=== PATIENT | male | born 1925 | race Caucasian/White ===

== ENCOUNTER → 2016-06-12 | Outpatient (CLI) | payer MEDICARE, OTHER ==
[~2016-06-12] MED LIST: ACET325T51 PO; BISA10SU8 RECTALLY; CALC750T4 PO; CARB-47 PO; CHOL20002 PO; DOCU-175 PO; DOCU240C25 PO; ENOX40DI SQ; FAMO20TA8 PO; FLUT16SP EA NOSTRIL; FLUT16SP12 NS; HYDR-3989 PO; MAGN400O4 PO; METO25TA6 PO; METO50TA5 PO; ONDA4TAB10 PO; SERT50TA12 PO; TROL85CR8 TOP
[2016-06-12 06:26] LABS: BLOOD, URINE NEGATIVE (NEGATIVE); COLOR,URINE YELLOW (YELLOW); LEUKOCYTE ESTERASE ,URINE NEGATIVE (NEGATIVE); NITRITE,URINE NEGATIVE (NEGATIVE); UROBILINOGEN,URINE 0.2 EU/DL (NORMAL)
== END ==
LOC: LABN.BH 06:14 → LABNH.BH 06:14
DX: N39.0 Urinary tract infection, site not specified (principal)
CPT/HCPCS: 81003

== ENCOUNTER 2016-06-26 14:19 | Inpatient (IN) | payer MEDICARE, OTHER ==
[~2016-06-26] VITALS: Ht 175.3 cm; Wt 68.1 kg
--- OUTSIDE RECORDS SUMMARY | 2016-06-26 14:29 | XMS REPORT | Continuity of Care Document ---
Author Author [facility] Organization [facility] Address Unknown Phone Unavailable Support Name Relationship Address Phone WOOD HAGEN DO Caregiver [facility] [address] [place] [address] YESICA ARMIJO MD Caregiver [address] [place] [address] MARIA ALEJANDRA SMALLS MD Caregiver [address] [place] [phone] RIVKA FELIZ (DPOA) Next Of Kin [address] [place], [place] [id number] Insurance Providers Payer Name Policy Number Subscriber Name Relationship Medicare [id number] Jefferson Esteban 18 Self [place] [id number] Jefferson Esteban 18 Self Advance Directives Directive Response Recorded Date/Time Advanced Directives Type DPOA for Healthcare 09/18/13 12:51pm Ordered Resuscitation Status Do Not Resuscitate 09/18/13 7:06pm Resuscitation Documents on File No 09/18/13 12:51pm Chief Complaint and Reason for Visit Chief Complaint DIAG NAUSEA/VOMITING Reason for Visit Nausea & vomiting Nausea & vomiting CAD (coronary artery disease) S/P placement of cardiac pacemaker Elevated CPK Hypertension Leukocytosis GERD (gastroesophageal reflux disease) CKD (chronic kidney disease), stage III History of prostate cancer Debility Problems Medical Problems Problem Onset Date Status TIA VS SYNCOPE Unknown Active Nausea & vomiting Unknown Resolved Nausea & vomiting Unknown Active CAD (coronary artery disease) Unknown Active Elevated CPK Unknown Active Hypertension Unknown Active Leukocytosis Unknown Resolved GERD (gastroesophageal reflux disease) Unknown Active CKD (chronic kidney disease), stage III Unknown Active History of prostate cancer Unknown Resolved Debility Unknown Active Surgical Problems Problem Onset Date Recorded Date/Time Status S/P placement of cardiac pacemaker Unknown 09/20/2013 8:31am Active Medications Medication Dose Route Sig Days/Qty Instructions Order Date Discontinued Date Status Aspirin 81 Mg PO DAILY 08/25/10 Active Famotidine 10 Mg PO DAILY 08/25/10 10/22/11 Discontinued Ascorbic Acid 500 Mg PO DAILY 07/29/11 Active [vitamin d3] 2,000 Unit DAILY 07/29/11 04/18/13 Discontinued [Donepezil] 02/12/13 04/18/13 Discontinued [Fish Oil] 02/12/13 04/18/13 Discontinued [Pantoprazole] 02/12/13 04/18/13 Discontinued Cephalexin Monohydrate 500 Mg PO THREE TIMES A DAY 02/12/13 Discontinued Donepezil Hcl 5 Mg PO BEDTIME 04/18/13 Active Pantoprazole Sodium 40 Mg PO DAILY 04/18/13 Active Carbidopa/Levodopa 1 Tab.sa PO TWICE A DAY 04/18/13 Active Fish Oil/[place]-3 Fatty Acids 1 Cap PO DAILY 09/18/13 Active Fluticasone Propionate 16 Gm NS 09/18/13 Active Multivit, Iron, Min #3, Fa 1 Tab PO 09/18/13 Active Cholecalciferol (Vitamin D3) 2,000 Unit PO DAILY 09/18/13 Active Cetirizine Hcl 10 Mg PO DAILY 09/18/13 Active Metoclopramide Hcl 5 Mg PO BEFORE MEALS 09/18/13 09/21/13 Discontinued Metoprolol Tartrate 75 Mg PO TWICE DAILY WITH MEALS 30 Days 09/21/13 Active Metoclopramide Hcl 5 Mg PO 30 MIN BEFORE MEALS & BEDTIME PRN NAUSEA 30 Qty 09/21/13 Active Social History Social History Problem Response Recorded Date/Time Smoking Status Unknown if ever smoked 09/18/2013 12:54pm Chewing Tobacco Status No 09/18/2013 10:13am Hx Substance Use No 09/18/2013 10:13am Hx Alcohol Use No 09/18/2013 10:13am Has the pt used tobacco in the last 12 months No 09/18/2013 12:54pm Query Response Start Date Stop Date Smoking Status Never smoker Hospital Discharge Instructions Instructions: Care Instructions: Reason for Hospitalization: Intractable N/V I was in the hospital because (patient own words): BECAUSE I WAS SICK Discharge Diet: No added salt Discharge Activity: As tolerated Follow Up Appointments: [facility] FridaySEPTEMBER 29 4:15 Condition at time of discharge: Good Care Plan Discharge Patient: Goal: Maximum functional status Patient Instructions: see patient instructions Problem: see problem list Patient Instructions: see patient instructions Problem: see problem list Plan of Care Discharge Date 09/21/13 5:00pm Disposition 03 TO [facility] NOT [facility] (SNF) Instructions/Education Provided High Blood Pressure (Hypertension) ( Alternative Therapy) Coronary Artery Disease DI for Gastroesophageal Reflux Disease (GERD) DI for Parkinson's Disease Prescriptions See Medications Section Functional Status Query Response Date Recorded Physical Hygiene Assist September 21, 2013 5:00pm Disabilities Hearing Visual September 21, 2013 5:00pm Devices Used Glasses September 21, 2013 5:00pm Dressing Assist September 21, 2013 5:00pm Ambulation Assist September 21, 2013 5:00pm Diet Self September 21, 2013 5:00pm Mental Status Alert Confused September 21, 2013 5:00pm Disabilities Hearing Visual September 21, 2013 5:00pm Devices Used Glasses September 21, 2013 5:00pm Physical Hygiene Assist September 21, 2013 5:00pm Dressing Assist September 21, 2013 5:00pm Ambulation Assist September 21, 2013 5:00pm Diet Self September 21, 2013 5:00pm Allergies, Adverse Reactions, Alerts Allergen Type Severity Reaction Status Last Updated No Known Allergies Active 09/18/13 Immunizations Name Given Type Hx Influenza Vaccination Y "a coule of months ago" (2012) Historical Hx Pneumococcal Vaccination No Historical Hx Influenza Vaccination Y "a coule of months ago" (2012) Historical Vital Signs Acute Vital Signs Vital Response Date/Time Temperature (Fahrenheit) 97.3 deg F (96.8 - 99.1) Temperature (Calculated Celsius) 36.76956 degrees C (36.0 - 37.3) Temperature Source Oral Pulse Rate (adult) 76 bpm (60 - 100) Respiratory Rate 17 breaths/min (10 - 20) O2 Sat by Pulse Oximetry 95 % (90 - 100) Blood Pressure 144/74 mm Hg Blood Pressure Source Automatic Cuff Height 5 ft 7 in Weight 161 lb Body Mass Index 25.0 kg/m^2 Results Test Source Date Result Interp. Ref. Range Comments Activated Partial Thromboplast Time August 30, 2010 4:20am 24.5 SEC N 24- 36 Alanine Aminotransferase (ALT/SGPT) September 19, 2013 5:40am 26 U/L N 21-72 Albumin September 19, 2013 5:40am 3.5 G/DL N 3.5-5.0 Albumin/Globulin Ratio September 19, 2013 5:40am 1.2 RATIO N 1.1-2.2 Alkaline Phosphatase September 19, 2013 5:40am 58 U/L N 38-126 Amylase Level September 18, 2013 9:50am 92 U/L N 30-110 Anion Gap September 21, 2013 4:39am 5 MEQ/L N 5-15 Aspartate Amino Transf (AST/SGOT) September 19, 2013 5:40am 44 U/L N 17-59 B-Type Natriuretic Peptide August 25, 2010 7:33pm 95 PG/ML N 15-100 BUN/Creatinine Ratio September 21, 2013 4:39am 21 RATIO N 6-26 Band Neutrophils # September 18, 2013 9:50am 0.5 T/MM3 - Band Neutrophils % September 18, 2013 9:50am 3.0 % N 0-6 Basophils # (Auto) September 21, 2013 4:39am 0.0 T/MM3 N 0-0.2 Basophils (%) (Auto) September 21, 2013 4:39am 0.5 % N 0-2 Blood Urea Nitrogen September 21, 2013 4:39am 23.0 MG/DL H 9-20 Calcium Level September 21, 2013 4:39am 8.0 MG/DL L 8.4-10.2 Calculated Osmolality September 21, 2013 4:39am 271 MOSM/KG N 261-280 Carbon Dioxide Level September 21, 2013 4:39am 25 MEQ/L N 22-30 Chloride Level September 21, 2013 4:39am 109 MEQ/L H 98-107 Cholesterol Level September 19, 2013 5:40am 169 MG/DL N 132-199 COMMENT TO BLOOD IN LABCOMMENT ADD TROPONIN TO BLOOD DRAWN THIS AM Cholesterol/HDL Ratio September 19, 2013 5:40am 3.7 RATIO N 0-5.0 COMMENT TO BLOOD IN LABCOMMENT ADD TROPONIN TO BLOOD DRAWN THIS AM Conjugated Bilirubin September 19, 2013 5:40am 0.00 MG/DL N 0.00-0.30 Creatine Kinase MB September 20, 2013 5:30am 4.8 NG/ML H 0-3.4 Creatinine September 21, 2013 4:39am 1.1 MG/DL DN 0.8-1.5 D-Dimer August 25, 2010 7:33pm 640 NG/ML H 0-230 <224 NG/ML=PRESUMPTIVE NEGATIVE FOR PE OR DVT>224 NG/ML=ADDITIONAL EVALUATION FOR PE OR DVT RECOMMENDED Eosinophils # (Auto) September 21, 2013 4:39am 0.3 T/MM3 N 0-0.5 Eosinophils (%) (Auto) September 21, 2013 4:39am 4.5 % H 0-4 Globulin September 19, 2013 5:40am 2.9 G/DL N 2.4-3.6 Glucose Level September 21, 2013 4:39am 83 MG/DL N 75-110 Hematocrit September 21, 2013 4:39am 37.8 % L 41-53 Hemoglobin September 21, 2013 4:39am 12.6 GM/DL L 13.5-17.5 LDL Cholesterol, Calculated September 19, 2013 5:40am 107.6 N 66-159 COMMENT TO BLOOD IN LABCOMMENT ADD TROPONIN TO BLOOD DRAWN THIS AM Lipase September 18, 2013 9:50am 73 U/L N 23-300 Lymphocytes # (Auto) September 21, 2013 4:39am 1.3 T/MM3 N 1-4.8 Lymphocytes # (Manual) September 18, 2013 9:50am 0.8 T/MM3 L 1-4.8 Lymphocytes % (Manual) September 18, 2013 9:50am 5.0 % L 23-45 Lymphocytes (%) (Auto) September 21, 2013 4:39am 21.7 % L 23-45 Magnesium Level August 30, 2010 4:20am 2.1 MG/DL DN 1.6-2.3 Mean Corpuscular Hemoglobin September 21, 2013 4:39am 32.0 UUG N 26-34 Mean Corpuscular Hemoglobin Concent September 21, 2013 4:39am 33.3 GM/DL N 31 -37 Mean Corpuscular Volume September 21, 2013 4:39am 95.9 UM3 N 80-100 Mean Platelet Volume September 21, 2013 4:39am 10.6 UM3 N 9.4-12.4 Metamyelocytes # September 18, 2013 9:50am 0.2 T/MM3 - Metamyelocytes % September 18, 2013 9:50am 1.0 % H 0-0 Monocytes # (Auto) September 21, 2013 4:39am 0.7 T/MM3 N 0-0.8 Monocytes # (Manual) September 18, 2013 9:50am 0.2 T/MM3 N 0-0.8 Monocytes % (Manual) September 18, 2013 9:50am 1.0 % N 0-9.0 Monocytes (%) (Auto) September 21, 2013 4:39am 12.3 % H 0-9.0 Neutrophils # (Auto) September 21, 2013 4:39am 3.6 T/MM3 N 1.8-7.7 Neutrophils # (Manual) September 18, 2013 9:50am 14.5 T/MM3 H 1.8-7.7 Neutrophils % (Manual) September 18, 2013 9:50am 90.0 % H 33-66 Neutrophils (%) (Auto) September 21, 2013 4:39am 60.8 % N 33-66 Platelet Count September 21, 2013 4:39am 143 T/MM3 N 130-400 Platelet Function Assay October 23, 2011 8:50am 44 % - <20% inhibition: recommended pre-surgical level.>20% inhibition: indicates anti-platelet effect. NOTE: Test not reliable with NSAID use or low platelet counts. Not for use with inherited platelet disorders. Potassium Level September 21, 2013 4:39am 4.0 MEQ/L N 3.6-5 Prothromb Time International Ratio October 23, 2011 8:50am 1.03 N 0.86- 1.10 THERAPUTIC RANGE=2.00-3.00 FOR ANTI-THROMBOSIS THERAPUTIC RANGE=2.50- 3.50 FOR IMPLANTED VALVE RDW Standard Deviation September 21, 2013 4:39am 47.0 FL N 36.9-50.2 Red Blood Count September 21, 2013 4:39am 3.94 M/MM3 L 4.50-5.90 Sodium Level September 21, 2013 4:39am 139 MEQ/L N 134-144 Thyroid Stimulating Hormone (TSH) September 19, 2013 5:40am 0.79 MIU/L N 0.47 -4.68 Total Bilirubin September 19, 2013 5:40am 2.00 MG/DL H 0.20-1.30 Total Creatine Kinase September 20, 2013 5:30am 685 U/L H 55-170 Total Protein September 19, 2013 5:40am 6.4 G/DL N 6.3-8.2 Triglycerides Level September 19, 2013 5:40am 77 MG/DL N 40-160 COMMENT TO BLOOD IN LABCOMMENT ADD TROPONIN TO BLOOD DRAWN THIS AM Troponin I September 20, 2013 5:30am 0.016 ng/ml N 0-0.12 Unconjugated Bilirubin September 19, 2013 5:40am 1.80 MG/DL H 0.00-1.10 Urine Bacteria September 18, 2013 12:15pm 1+ H - Has specimen been collected /obtained? Y Urine Bilirubin September 18, 2013 12:15pm Negative - Has specimen been collected/obtained? Y Urine Blood September 18, 2013 12:15pm 1+ H - Has specimen been collected/ obtained? Y Urine Collection Type September 18, 2013 12:15pm Cleancatch-midstream - Has specimen been collected/obtained? Y Urine Color September 18, 2013 12:15pm Yellow - Has specimen been collected/obtained? Y Urine Glucose (UA) September 18, 2013 12:15pm Negative - Has specimen been collected/obtained? Y Urine Hyaline Casts September 18, 2013 12:15pm 1-3 /LPF - Has specimen been collected/obtained? Y Urine Ketones September 18, 2013 12:15pm 2+ H - Has specimen been collected/ obtained? Y Urine Leukocyte Esterase September 18, 2013 12:15pm Negative - Has specimen been collected/obtained? Y Urine Mucus September 18, 2013 12:15pm Present - Has specimen been collected/obtained? Y Urine Nitrite September 18, 2013 12:15pm Negative - Has specimen been collected/obtained? Y Urine Protein September 18, 2013 12:15pm Trace H - Has specimen been collected/obtained? Y Urine RBC September 18, 2013 12:15pm 0-1 /HPF - Has specimen been collected/obtained? Y Urine Specific Protection September 18, 2013 12:15pm >=1.030 H - Has specimen been collected/obtained? Y Urine Squamous Epithelial Cells September 18, 2013 12:15pm 10-20 - Has specimen been collected/obtained? Y Urine Turbidity September 18, 2013 12:15pm Clear - Has specimen been collected/obtained? Y Urine Urobilinogen September 18, 2013 12:15pm 0.2 EU/DL - Has specimen been collected/obtained? Y Urine WBC September 18, 2013 12:15pm 1-3 /HPF - Has specimen been collected/obtained? Y Urine pH September 18, 2013 12:15pm 5.5 - Has specimen been collected/ obtained? Y VLDL Cholesterol September 19, 2013 5:40am 15.4 MG/DL N 0-28 COMMENT TO BLOOD IN LABCOMMENT ADD TROPONIN TO BLOOD DRAWN THIS AM White Blood Count September 21, 2013 4:39am 6.0 T/MM3 N 4.5-11.0 Chemistry Specimen Hemolysis September 21, 2013 4:39am < 15 0-25 0-25: No Hemolysis.26-70: Slight Hemolysis - can falsely elevate K and Urine Protein. 71-285: Moderate Hemolysis - can falsely elevate K, Troponin I, CA 19-9, PTH, CSF GLucose, and Urine Protein, and can falsely decrease Phenytoin. 286-999: Gross Hemolysis - can falsely elevate K, Troponin I, CA 19-9, PTH, CSF Glucose, and Urine Protine, and can falsely decrease Phenytoin. Recommend specimen recollection. Activated Clotting Time August 28, 2010 10:00am 152 SEC H 84-139 HDL Cholesterol Direct September 19, 2013 5:40am 46 MG/DL N 40-60 COMMENT TO BLOOD IN LABCOMMENT ADD TROPONIN TO BLOOD DRAWN THIS AM Turbidity September 21, 2013 4:39am < 20 0-20 Glomerular Filtration Rate Calc September 21, 2013 4:39am 63 - Immature Granulocyte # (Auto) September 21, 2013 4:39am 0.01 T/MM3 N 0.00- 0.03 Immature Granulocyte % (Auto) September 21, 2013 4:39am 0.2 % N 0.0-0.5 Icterus Index September 21, 2013 4:39am < 2 0-7 LO-Tnh-E-Type Natriuretic Peptide April 18, 2013 10:38am 295 PG/ML H 0 -175 Rule in cut points: <50 years old=450; 50-75 years old=900; >75 years old=1800; When utilizing ProBNP rule-in cut points, adjustment for impaired renal function is typically not required. Helicobacter pylori Rapid Urease Gastric Biopsy September 09, 2007 7:46am Procedures No known history of procedures. Encounters Encounter Location Date/Time Discharged Inpatient [facility] 09/18/13 6:00pm Recent Diagnosis Nausea & vomiting Nausea & vomiting CAD (coronary artery disease) Elevated CPK Hypertension Leukocytosis GERD (gastroesophageal reflux disease) CKD (chronic kidney disease), stage III History of prostate cancer Debility
[2016-06-26] MEDS ORDERED: NS KCL 20 MEQ 1,000 ML IV SCH ×3 (14:45→23:30)
[2016-06-26] MEDS ORDERED: METOCLOPRAMIDE 10mg/2ml INJECTION IV PRN (15:00)
--- NOTE | 2016-06-26 15:00 | NUR ---
Admit Patient arrives here at [id number] per wheelchair. Patient is non verbal at this time. NO distress noted.
[2016-06-26 15:02] VITALS: Ht 175.3 cm; Wt 68.1 kg
[2016-06-26] MEDS: NS KCL 20 MEQ 1,000 ML IV SCH ×2 (15:30→19:42)
[2016-06-26 15:35] VITALS: BP 126/71; PULSE 72; RESP 18; TEMP 97.4; O2SAT 91
[2016-06-26 15:37] VITALS: PULSE 72
[2016-06-26 15:39] LABS: HCT - HEMATOCRIT 42.6 % (41-53); HGB - HEMOGLOBIN 13.2 GM/DL (13.5-17.5); MEAN CORPUSCULAR HGB 30.9 UUG (26-34); MEAN CORPUSCULAR VOLUME 99.8 UM3 (80-100); MEAN PLATELET VOLUME 12.3 UM3 (9.4-12.4); RED BLOOD COUNT 4.27 M/MM3 (4.50-5.90); WBC - WHITE BLOOD COUNT 9.7 T/MM3 (4.5-11.0)
[2016-06-26 15:50] LABS: ALBUMIN 3.6 G/DL (3.5-5.0); ALBUMIN/GLOBULIN RATIO 0.9 RATIO (1.1-2.2); ALKALINE PHOSPHATASE 72 U/L (38-126); ALT (SGPT) 25 U/L (21-72); ANION GAP 17 MEQ/L (5-15); AST (SGOT) 30 U/L (17-59); BUN/CREATININE RATIO 19 RATIO (6-26); CALCIUM 9.4 MG/DL (8.4-10.2); CHLORIDE 126 MEQ/L (98-107); CO2 - CARBON DIOXIDE 21 MEQ/L (22-30); CREATININE 4.1 MG/DL (0.8-1.5); GLOMERULAR FILTRATION RATE 14; GLUCOSE 112 MG/DL (75-110); MAGNESIUM 2.6 MG/DL (1.6-2.3); TOTAL PROTEIN 7.4 G/DL (6.3-8.2)
[2016-06-26 15:52] LABS: SODIUM 164 MEQ/L (134-144)
[2016-06-26 16:31] LABS: ANISOCYTOSIS 1+; BAND NEUTROPHILS # 1.3 T/MM3; LYMPHOCYTES # (MANUAL) 1.6 T/MM3 (1-4.8); METAMYELOCYTES # 0.2 T/MM3; MONOCYTES # (MANUAL) 0.6 T/MM3 (0-0.8); NEUTROPHILS #(MANUAL)-ABSOLUTE 6.1 T/MM3 (1.8-7.7); TOTAL CELLS COUNTED 100 %
--- NOTE | 2016-06-26 17:00 | NUR ---
Pond catheter Pond catheter in inserted. Patient tolerates well. Urine is sent to lab. Dark peg urine return.
[2016-06-26 17:28] LABS: BLOOD, URINE 2+ (NEGATIVE); COLOR,URINE YELLOW (YELLOW); LEUKOCYTE ESTERASE ,URINE NEGATIVE (NEGATIVE); NITRITE,URINE NEGATIVE (NEGATIVE); UROBILINOGEN,URINE 0.2 EU/DL (NORMAL)
[2016-06-26 17:35] LABS: SQUAMOUS EPITHELIAL CELL,UR 0-5
[2016-06-26 17:36] LABS: BACTERIA,URINE 1+ (NEGATIVE)
--- NOTE | 2016-06-26 17:56 | HPF ---
CHIEF COMPLAINT Patient is an 89-year-old man who was brought in by a staff member from [facility] at my request for followup. The patient was seen here by Mago Padilla APRN, yesterday. At that time that was concern the patient had been failing gradually with more drastic changes over the last couple of weeks. According to the nursing staff the patient had become less responsive to family. He is just not very enthusiastic about anything, just lethargic. Over the last few days the patient also has needed to be fed which is unusual for him. He is not eating well or drinking well. He had a temperature yesterday of 100.4. He was incontinent of urine at that time which is also unusual for him. He has not voided since yesterday. His oral intake of fluids has gone down. Yesterday it appeared that he had a UTI. He was given 1 g of Rocephin here in the office and sent home on cephalexin. The patient is back today after the nurse practitioner showed me the patient's lab report with a BUN of 50, creatinine 2.93, GFR 18. However, sodium was 160, chloride 116, potassium normal at 4.2. The patient was admitted to [facility] at my request to gently correct his electrolytes. The patient appears to be dehydrated on physical examination today. PAST SURGICAL HISTORY Bilateral cataract surgery. Inguinal hernia surgery - 1990, 1994. Total knee replacement - 2005. Heart catheterization, PTCA and stent placement - 08/28/2010. Pacemaker insertion - 2010. ORIF right hip after fall - June 2014. CURRENT MEDICAL PROBLEMS Hypertension. BPH. History of TIA - 1996. GERD/gastritis. Dyslipidemia. Prostate cancer - May 2008. Parkinson's disease. Chronic kidney disease. SOCIAL HISTORY The patient resides at [facility]. He has been a since 2013. Five grown children. Retired from farming. Denies alcohol use and tobacco use. FAMILY HISTORY Father at age 86 from Parkinson's disease complications, type 2 diabetes mellitus complications. Mother at age 54 from motor vehicle accident. A sister with Parkinson' s disease. Brother at age 74 from coronary disease. Paternal grandfather from coronary disease. ALLERGIES No known drug allergies. CURRENT MEDICATIONS 1. Calcium carbonate twice daily. 2. Docusate calcium 240 mg one tablet daily p.r.n. 3. Ferrex 150 mg one tablet daily. 4. Bisacodyl suppository 10 mg one p.r.n. 5. Docusate sodium 100 mg b.i.d. 6. Zoloft 50 mg one tablet daily. 7. DuoNeb p.r.n. 8. Aspirin 325 mg one tablet daily. 9. Vitamin D3 2000 IU one tablet daily. 10. Tylenol 325 mg one to two tablets p.r.n. pain. 11. Metoprolol 50 mg one tablet twice daily. 12. Loratadine 10 mg one tablet daily. 13. Pantoprazole 40 mg one tablet daily. 14. Cephalexin 500 mg one tablet b.i.d. 15. Milk of Magnesia p.r.n. 16. Senna Plus p.r.n. 17. Docusate sodium liquid p.r.n. PHYSICAL EXAM VITAL SIGNS: Temperature 97.4. Pulse 72. Respirations 18. Blood pressure 127/ 71. Oxygen saturation 91% on room air. GENERAL: The patient is just basically quiet. He will not even respond to any questioning. He seems to be aware of his environment. HEENT: Lips are dry. Oral mucosa dry. NECK: Supple. CHEST: Lungs are clear. CARDIOVASCULAR: Regular rate and rhythm. ABDOMEN: Soft. EXTREMITIES: No cyanosis, clubbing or edema. NEUROLOGIC: Grossly intact. SKIN: Patient's skin is dry. ASSESSMENT 1. Acute dehydration due to hypovolemia. 2. Acute ksostvtt-eq-htyepb hypernatremia 3. Acute confusion with lethargy due to #1 above. 5. Anuria. 6. History of Parkinson's disease. 7. Acute renal injury due to acute illness. 8. Chronic kidney disease. PLAN Admit patient to [facility] under the care of Dr. Jamshid Valdivia. Patient will receive gentle IV fluid replacement for the hydration part as well as correcting the hypernatremia - not too aggressively. Patient will receive pain medication as needed. Lab needed includes CBC, CMP, UA, magnesium, urine osmolality - pending. The patient will be started on normal saline for a total of ten hours. Reglan 10 mg IV q.4-6h. p.r.n. MTDD
--- NOTE | 2016-06-26 18:43 | NUR ---
EOS Patient is resting in bed in no distress noted. Dr. Valdivia at bedside this evening visists with family. Family questions are answered.
[2016-06-26] MEDS ORDERED: IRON150C5 PO (20:12)
[2016-06-26] MEDS ORDERED: ASPI325T PO (20:19)
[2016-06-26 21:40] VITALS: PULSE 72; RESP 16; O2SAT 95
--- NOTE | 2016-06-26 22:00 | NUR ---
IV Fluids and new orders Addendum: 06/27/16 at 0512 by MILAN DE LOS SANTOS RN Received telephone order to discontinue NS with 20 kcl @250cc/hr. Change fluids to d5w with 20kcl @55cc/hr. Also received order for an ammonia level and head ct without contrast, and 500mg iv rocephin daily to be monitored by pharmacy. orders entered.
[2016-06-26] MEDS: POTASSIUM CHLORIDE 20 MEQ in D5W 1,000 ML IV SCH (22:27)
[2016-06-27 00:01] VITALS: BP 147/80; PULSE 67; RESP 18; TEMP 95.3; O2SAT 95
[2016-06-27] MEDS ORDERED: P-EP-93 PO (03:45)
[2016-06-27] MEDS ORDERED: OMEP20CA10 PO (03:45)
[2016-06-27] MEDS ORDERED: ASPI325T PO (03:47)
--- NOTE | 2016-06-27 05:12 | NUR ---
summary patient has remained nonverbal. He nods and shakes his head, but not always appropriate. christianson patent, draining. some bloody discharge noted, catheter care performed. no signs of distress. remains on room air. vss. will continue to monitor.
[2016-06-27 05:17] LABS: ANION GAP 16 MEQ/L (5-15); BUN/CREATININE RATIO 24 RATIO (6-26); CALCIUM 8.6 MG/DL (8.4-10.2); CHLORIDE 127 MEQ/L (98-107); CO2 - CARBON DIOXIDE 22 MEQ/L (22-30); CREATININE 3.2 MG/DL (0.8-1.5); GLOMERULAR FILTRATION RATE 18; GLUCOSE 102 MG/DL (75-110); POTASSIUM 4.3 MEQ/L (3.6-5)
[2016-06-27 05:29] LABS: SODIUM 165 MEQ/L (134-144)
[2016-06-27 08:00] VITALS: PULSE 67; RESP 18
--- NOTE | 2016-06-27 08:00 | NUR ---
Received report Patient is none verbal. No distress noted at this time. IVF running at 55ml/hr. RA VSS.
[2016-06-27 08:16] VITALS: BP 162/91; PULSE 72; RESP 18; TEMP 97; O2SAT 94
--- NOTE | 2016-06-27 08:30 | NUR ---
Nutrition risk r/t poor PO intake x 3 days while in hospital. Previous day admission. Diet: NPO r/t electrolyte imbalance, elevated BUN M/E: diet upgrade, electrolytes; intake RD will continue to monitor x 1406
--- NOTE | 2016-06-27 08:48 | DI ---
Indication: ITS.REASON: decreased loc, hypernatremia PROCEDURE: CT HEAD W/O CONTRAST: Encounter: Initial Comparison: August 28, 2014 Technique: Axial CT images through the head were performed without contrast. Iterative Reconstruction dose reducing technique was utilized. FINDINGS: Moderate to severe atrophy. Prominent retrocerebellar CSF space. The ventricles are dilated but unchanged. Old left cerebellar infarct. There is a new area of orellana-white differentiation loss in the left occipital lobe. There are extensive areas of low attenuation in the white matter which most likely represent changes from chronic microvascular ischemia. The brainstem, cerebellum, and cerebral hemispheres otherwise have a normal morphology and CT attenuation. There is no evidence of midline displacement. No hemorrhage, signs of acute territorial stroke, mass effect, mass lesions, or edema is evident. The visualized portions of the skull base, midface, and calvarium demonstrate no abnormality. Left maxillary sinus disease. The tympanic and mastoid cavities appear normal. IMPRESSION: No acute intracranial hemorrhage. New area of infarct in the left occipital lobe of uncertain age. .
[2016-06-27] MEDS ORDERED: CEFTRIAXONE IV SCH (09:00)
[2016-06-27] MEDS ORDERED: NORMAL SALINE IV SCH (09:00)
--- NOTE | 2016-06-27 10:27 | DI ---
Indication: ITS.REASON: hypernatremia PROCEDURE: CHEST 1 VIEW: Encounter: Initial Comparison: August 28, 2014 Findings: Motion artifact. There is some hazy airspace opacity in both lower lobes. No pneumothorax or definite effusion. Heart size and mediastinal contours are stable. Pulmonary vascularity appears normal. Impression: Lower lobe airspace disease could be due to atelectasis, pneumonia or aspiration. .
--- NOTE | 2016-06-27 11:05 | NUR ---
[facility] CM VISITED PT. CM PROVIDED CONTACT INFORMATION AT BEDSIDE AND ON BOARD. CM SPOKE WITH PT DAUGHTER RIVKA. CM EXPLAINED ROLE AND PROVIDED CONTACT INFORMATION. PT WILL RETURN TO [facility] AT TIME OF [place] [facility] [place] CM LEFT MESSAGE FOR DORITA AT [facility] REGARDING PT STATUS AND PROVIDED CONTACT INFORMATION.
[2016-06-27] MEDS: CEFTRIAXONE 1 G in NORMAL SALINE 100 ML IV SCH (13:02)
--- NOTE | 2016-06-27 13:23 | NUR ---
CEFTRIAXONE CONSULT 89 y/o M with ARF 2/2 UTI and hypernatremia. Current antibiotic for UTI is ceftriaxone. Pharmacy consulted for ceftriaxone. In spite of increased SCr, ceftriaxone is not renally cleared and does not need to be adjusted due to ARF. Increased dose to 1 g IV q24h.
--- NOTE | 2016-06-27 14:47 | PNF ---
DATE 06/27/2016 SUBJECTIVE Patient is lying in bed in Room 135 on the medical floor. The patient does not respond. He moves his hands around but he is not agitated. He does not open his eyes or talk back to the examiner. PHYSICAL EXAMINATION GENERAL: He looks comfortable but is not talking at all. HEENT: Funduscopic examination unremarkable. NECK: Supple. LUNGS: Clear. CARDIOVASCULAR: Regular rate and rhythm. ABDOMEN: Soft. EXTREMITIES: No significant edema. Lab this morning: Sodium is 165 - one tick up. Potassium 4.3. Creatinine down from 4.1 to 3.2. Calculated osmolality is 339. Specimen is hemolyzed. Ammonia is less than 9. Liver function tests normal. Chest x-ray shows possible pneumonia. CT head done yesterday: No acute intracranial hemorrhage. A new area of infarct in the left occipital lobe of uncertain age as read by the radiologist. ASSESSMENT 1. Moderate to severe hypernatremia. 2. Acute dehydration. 3. Recent urinary tract infection. 4. Possible left lower lobe pneumonia. That would be community acquired. 5. Lethargy. 6. Hypovolemic hypernatremia. 7. Anuria, improving. 8. History of Parkinson's disease. 9. Acute renal injury due to acute illness. Creatinine is improving. 10. Chronic kidney disease, stage 4-5. PLAN Will continue patient on D5W today and check another sodium this noon. Result is pending. Will make decision based on that. Continue hydration. Continue with IV antibiotics. MTDD
[2016-06-27 16:00] VITALS: BP 155/83; PULSE 66; RESP 16; TEMP 97.1
[2016-06-27] MEDS: POTASSIUM CHLORIDE 20 MEQ in D5W 1,000 ML IV SCH (17:11)
--- NOTE | 2016-06-27 18:28 | NUR ---
EOS Patient rests in bed in no distress. Continues D5W+20kcl at 55ml/hr. No new concerns noted this shift
[2016-06-28 00:32] VITALS: BP 141/70; PULSE 66; RESP 18; TEMP 97.3; O2SAT 97
[2016-06-28 05:13] LABS: ANION GAP 13 MEQ/L (5-15); BUN/CREATININE RATIO 26 RATIO (6-26); CHLORIDE 123 MEQ/L (98-107); CO2 - CARBON DIOXIDE 23 MEQ/L (22-30); CREATININE 2.4 MG/DL (0.8-1.5); GLOMERULAR FILTRATION RATE 26; GLUCOSE 101 MG/DL (75-110); POTASSIUM 4.2 MEQ/L (3.6-5); SODIUM 159 MEQ/L (134-144)
--- NOTE | 2016-06-28 06:25 | NUR ---
SUMMARY PT IS NON VERBAL. NO GRIMACING OR MOANING NOTED THIS SHIFT. PT OPENS EYES TO VOICE. HAS BEEN REPOSITIONED SEVERAL TIMES THIS SHIFT. CONTINUES ON IV FLUIDS THAT HE TOLERATES WELL. MAHER INTACT. ADEQUATE URINE OUTPUT. PT IS NPO. NO PRN MEDICATION GIVEN THIS SHIFT. FAMILY VISITED THE PT AT THE BEGINNING OF THE SHIFT.
[2016-06-28 07:43] VITALS: BP 150/69; PULSE 66; RESP 18; TEMP 97.3; O2SAT 97
[2016-06-28 08:00] VITALS: RESP 18
[2016-06-28] MEDS: POTASSIUM CHLORIDE 20 MEQ in D5W 1,000 ML IV SCH (12:01)
[2016-06-28] MEDS: CEFTRIAXONE 1 G in NORMAL SALINE 100 ML IV SCH (12:03)
[2016-06-28 15:34] VITALS: BP 167/67; PULSE 67; RESP 18; O2SAT 97
--- NOTE | 2016-06-28 17:54 | NUR ---
shift status Awake does follow commands squeezes hands does say a few words, took pudding and thickened water. does cough after food. vs stable foely patent. family here and dr Valdivia here,
--- NOTE | 2016-06-28 18:10 | PNF ---
DATE 06/28/2016 SUBJECTIVE The patient is lying on bed in room 135 medical floor. The patient is not really very conversant. He will just pull his cover around him, but he will not talk. OBJECTIVE VITAL SIGNS: Blood pressure early this morning was 150/69 with a pulse of 60. Temperature 97.3. O2 saturation 97% on room air. GENERAL: He looks comfortable overall, not talkative. HEENT: Funduscopic examination is unremarkable. Pupils equal, round, reactive to light bilaterally. NECK: Supple. LUNGS: Clear. CARDIOVASCULAR: Regular rate and rhythm. ABDOMEN: Soft. EXTREMITIES: No edema. LABORATORY DATA Chemistry today: Sodium 159, potassium 4.2, chloride 123, CO2 23, BUN 63, creatinine 2.4. Calculated osmolality 323. Urine osmolality is 634. ASSESSMENT 1. [id number] hypernatremia. It actually is improving. 2. Acute dehydration. Patient is on replacement. 3. Urinary tract infection. Patient is on antibiotics. 4. Possible left lower lobe pneumonia. 5. Lethargy/somnolence. 6. Anuria improving. 7. Acute renal injury superimposed on chronic kidney disease, stage III to IV. Creatinine is improving. 8. History of Parkinson disease. PLAN Neurologic consultation today was initiated. We will continue with the same rate of IV fluids. Follow up electrolytes in the morning. RUDY
[2016-06-28] MEDS ORDERED: HYDROCODONE/APAP 5 mg/325 mg TABLET PO PRN (18:15)
[2016-06-28] MEDS ORDERED: ONDANSETRON ODT 4 MG TAB PO PRN (18:15)
[2016-06-28] MEDS ORDERED: DOCUSATE CALCIUM 240 MG CAPSULE PO PRN (18:15)
[2016-06-28] MEDS ORDERED: ACETAMINOPHEN 325 MG TABLET PO PRN (18:15)
[2016-06-28] MEDS ORDERED: MILK OF MAGNESIA 30 ML SUSP PO PRN (18:15)
[2016-06-28] MEDS ORDERED: TROLAMINE SALICYLATE 85 GM TUBE TOP PRN (18:15)
[2016-06-28] MEDS ORDERED: BISACODYL 10 MG SUPPOSITORY RECTALLY PRN (18:15)
[2016-06-28] MEDS: CARBIDOPA/LEVODOPA 25 MG/100 MG TABLET PO SCH (20:10)
[2016-06-28] MEDS: CALCIUM CARBONATE 750mg Chewable TAB PO SCH (20:10)
[2016-06-28 20:18] VITALS: PULSE 67; RESP 18
[2016-06-28] MEDS: FAMOTIDINE 20 MG TABLET PO SCH (21:29)
[2016-06-28] MEDS: DOCUSATE SODIUM 100 MG CAPSULE PO SCH (21:29)
[2016-06-28 23:50] VITALS: BP 141/71; PULSE 65; RESP 24; TEMP 97.4; O2SAT 97
[2016-06-29 05:35] LABS: BASOPHILS % (AUTO) 0.3 % (0-2); EOSINOPHILS # (AUTO) 0.3 T/MM3 (0-0.5); EOSINOPHILS % (AUTO) 4.8 % (0-4); HCT - HEMATOCRIT 37.7 % (41-53); HGB - HEMOGLOBIN 11.6 GM/DL (13.5-17.5); IMMATURE GRANULOCYTE # (AUTO) 0.05 T/MM3 (0.00-0.03); IMMATURE GRANULOCYTE % (AUTO) 0.8 % (0.0-0.5); LYMPHOCYTES # (AUTO) 1.4 T/MM3 (1-4.8); LYMPHOCYTES % (AUTO) 21.7 % (23-45); MEAN CORPUSCULAR HGB 30.8 UUG (26-34); MEAN CORPUSCULAR HGB CONC(MCHC 30.8 GM/DL (31-37); MEAN PLATELET VOLUME 12.1 UM3 (9.4-12.4); MONOCYTES # (AUTO) 0.5 T/MM3 (0-0.8); MONOCYTES % (AUTO) 8.4 % (0-9.0); RED BLOOD COUNT 3.77 M/MM3 (4.50-5.90); WBC - WHITE BLOOD COUNT 6.3 T/MM3 (4.5-11.0)
[2016-06-29 05:50] LABS: ANION GAP 11 MEQ/L (5-15); BUN/CREATININE RATIO 23 RATIO (6-26); CALCIUM 9.2 MG/DL (8.4-10.2); CHLORIDE 118 MEQ/L (98-107); CO2 - CARBON DIOXIDE 24 MEQ/L (22-30); GLOMERULAR FILTRATION RATE 32; GLUCOSE 100 MG/DL (75-110); POTASSIUM 4.4 MEQ/L (3.6-5); SODIUM 153 MEQ/L (134-144)
[2016-06-29] MEDS: CARBIDOPA/LEVODOPA 25 MG/100 MG TABLET PO SCH ×2 (06:17→19:28)
[2016-06-29] MEDS: OMEPRAZOLE 20 MG CAPSULE PO SCH (06:18)
--- NOTE | 2016-06-29 06:44 | NUR ---
SHIFT SUMMARY PT IS AWAKE AND MUTE PT DOES SMILE AND MAKE EYE CONTACT. PT DOES NOT ANSWER QUESTIONS MUTE. PT TAKES MEDS WITH PUDDING AND THICKENED LIQUIDS. PT COUGHS AFTER DRINKING OR PUDDING BUT CLEARS AIRWAY. PT HAS FLUIDS RUNNING PATENT IV IN RIGHT WRIST WRAPPED WITH CLING WRAP. PT OCCASIONALLY PICKS AT THINGS IS EASILY REDIRECTED. PT QUIET AND PLEASANT FOR THIS RN. FAMILY VISITED EARLY IN SHIFT AND STATED THAT PT APPEARED TO BE DOING WELL.
[2016-06-29] MEDS: POTASSIUM CHLORIDE 20 MEQ in D5W 1,000 ML IV SCH (06:52)
[2016-06-29 07:25] VITALS: BP 161/83; PULSE 68; RESP 20; TEMP 96; O2SAT 98
[2016-06-29 08:00] VITALS: PULSE 68; RESP 20
[2016-06-29] MEDS: DOCUSATE SODIUM 100 MG CAPSULE PO SCH ×2 (08:58→20:59)
[2016-06-29] MEDS: CALCIUM CARBONATE 750mg Chewable TAB PO SCH ×2 (08:58→20:59)
[2016-06-29] MEDS: ASPIRIN 325 MG TABLET PO SCH (08:58)
[2016-06-29] MEDS: IRON POLYSACCHARIDES COMPLEX 150 MG CAPSULE PO SCH (08:58)
[2016-06-29] MEDS: SERTRALINE 50 MG TABLET PO SCH (08:58)
[2016-06-29] MEDS ORDERED: POLYETHYL.GLYCOL 3350 PACKET 17gm PO SCH (10:30)
[2016-06-29] MEDS: CEFTRIAXONE 1 G in NORMAL SALINE 100 ML IV SCH (11:22)
[2016-06-29] MEDS: ENOXAPARIN 30 MG/0.3 ML INJECTION SQ SCH (11:22)
--- NOTE | 2016-06-29 13:42 | PNF ---
DATE 06/29/16 TIME 1030. Coverage for Dr. Valdivia. FOLLOWUP Hypernatremia, acute kidney injury. SUBJECTIVE The patient is resting in his bed comfortably this morning. He is awake and alert but not interacting verbally with me. It is difficult to obtain review of systems as he is nonverbal at this time. It does not look to this breathing problematic. His abdomen is not tender or uncomfortable. In discussion with nurse he did take 100% of his breakfast this morning and nursing reports he was actually able to feed himself. There is only one bowel movement charted but in discussion with nurse it sounds as if he had a fairly large stool the other day. Lab is showing improvement; sodium is gradually been improving as his creatinine. White count is normal. OBJECTIVE VITAL SIGNS: Temperature 96.0, pulse 68 regular, respiratory rate 20 unlabored. Blood pressure 161/83. 98% room air saturation. GENERAL: Well-developed, well-nourished elderly gentleman who is awake and alert. He is nonverbal at the time of my interview and examination. HEENT: NC/AT. PERRLA. EOMI. Mucous membranes moist. NECK: Midline, supple and without spasm. LUNGS: Slight decreased breath sounds bilaterally but essentially clear. I am not appreciating crackles or wheeze. He breathes comfortably on room air without distress. CARDIOVASCULAR: Regular rate and rhythm. ABDOMEN: Soft, flat, nontender, nondistended. Bowel sounds are present. EXTREMITIES: No clubbing or cyanosis. No lower extremity edema is appreciated. NEUROLOGIC: Cranial nerves II-XII appear grossly intact. I am not appreciating focal deficits. PSYCHIATRIC:: Patient is awake and attentive. Will track with his eyes. He is nonverbal. Not agitated or restless. SKIN: Warm and dry. KIDNEY: Creatinine is 2.0 with GFR 32. Urine output 1,075 cc yesterday. LABORATORY White blood count is 6.3 with hemoglobin 11.6, hematocrit 37.0, MCV 100 and platelets 116,000. Serum sodium is 153, potassium 4.4, chloride 118, CO2 24, BUN 46 with creatinine 2.0, GFR 32 and blood glucose 100. Calculated osmolality was 306. ASSESSMENT 1. Hypernatremia (present on admission) - continued interval improvements noted. 2. Acute kidney injury - resolving; creatinine approaching baseline. 3. Dehydration - improving with IV fluids. 4. Urinary tract infection - no organism isolated. 5. Lethargy secondary hypernatremia, improving. 6. Hypertension. 7. Parkinson's disease. 8. Thrombocytopenia (present on admission) . 9. Dysphagia. PLAN 1. Continue with D5W with 20 mEq potassium at 55 cc an hour to provide hydration and help with electrolytes. Laboratory is looking well and sodium is trending towards normal. 2. Start Lovenox 30 mg subcu daily for DVT prophylaxis. 3. Encouraged nursing to continue to work on bowel motivation monitor stools. 4. Encourage oral intake of fluids and liquids. 5. Continue current antihypertensives. 6. Recheck CBC in a.m. in light of thrombocytopenia. 7. Repeat BMP in a.m. secondary to hypernatremia and acute kidney injury. 8. Continue with supportive care. 9. Case was discussed with nursing. Time spent with patient care 35 minutes. RUDY
[2016-06-29 15:25] VITALS: BP 137/72; PULSE 65; RESP 20; TEMP 96.3; O2SAT 98
--- NOTE | 2016-06-29 17:49 | NUR ---
SHIFT PT HAS BEEN PLEASANTLY CONFUSED ALL SHIFT AND SPEAKS VERY LITTLE. PT HAS OCCASIONALLY ANSWERED YES OR NO TO QUESTIONS AND CAN FOLLOW SOME COMMANDS. PT HAS BEEN TURNED Q2H AND SHOWS NO S/S OF PAIN, N/V OR SOA. PT IS ON ROOM AIR. PT NEEDS HELP WITH FEEDING AND EATS ABOUT 50% OF MEALS. PT HAS HAD A BM THIS LAST SHIFT. NO OTHER CHANGES SINCE PREVIOUS SHIFT. ALARMS IN USE AND CALL LIGHT WITH IN REACH.
[2016-06-29 20:00] VITALS: PULSE 65; RESP 18
[2016-06-29] MEDS: FAMOTIDINE 20 MG TABLET PO SCH (20:59)
[2016-06-29 23:06] VITALS: BP 127/65; PULSE 65; RESP 22; TEMP 97.1; O2SAT 96
[2016-06-30] MEDS: POTASSIUM CHLORIDE 20 MEQ in D5W 1,000 ML IV SCH (00:41)
--- NOTE | 2016-06-30 01:16 | NUR ---
STATUS PT ON SEVERAL OCCASIONS HAS BEEN FOUND TO BE MOANING AND CRYING OUT. UPON ENTERING ROOM PT IS QUIET AND WHEN ASKED IF PT HAS PAIN OR ANY NEEDS PT SHAKES HEAD NO. PT ADJUSTED IN BED CHECKED FOR INCONTINENCE, GIVEN PO FLUIDS. PT SMILES AND CONTINUES TO DENY PAIN OR NEEDS. MINUTES LATER PT CRIES OUT AND AGAIN UPON ENTERING ROOM PT IS LAYING QUIETLY WITH EYES CLOSED AND WHEN ASKED BARNEY PAIN OR NEEDS. WILL CONTINUE TO MONITOR PT.
[2016-06-30 04:28] LABS: BASOPHILS % (AUTO) 0.4 % (0-2); EOSINOPHILS # (AUTO) 0.4 T/MM3 (0-0.5); HCT - HEMATOCRIT 37.5 % (41-53); HGB - HEMOGLOBIN 11.8 GM/DL (13.5-17.5); IMMATURE GRANULOCYTE # (AUTO) 0.13 T/MM3 (0.00-0.03); IMMATURE GRANULOCYTE % (AUTO) 1.9 % (0.0-0.5); LYMPHOCYTES # (AUTO) 1.7 T/MM3 (1-4.8); LYMPHOCYTES % (AUTO) 25.1 % (23-45); MEAN CORPUSCULAR HGB CONC(MCHC 31.5 GM/DL (31-37); MEAN CORPUSCULAR VOLUME 98.4 UM3 (80-100); MEAN PLATELET VOLUME 11.9 UM3 (9.4-12.4); MONOCYTES # (AUTO) 0.6 T/MM3 (0-0.8); MONOCYTES % (AUTO) 8.7 % (0-9.0); NEUTROPHILS #(AUTO)-ABSOLUTE 3.9 T/MM3 (1.8-7.7); NEUTROPHILS % (AUTO) 57.9 % (33-66); RED BLOOD COUNT 3.81 M/MM3 (4.50-5.90); WBC - WHITE BLOOD COUNT 6.7 T/MM3 (4.5-11.0)
[2016-06-30 04:46] LABS: ANION GAP 13 MEQ/L (5-15); BUN/CREATININE RATIO 25 RATIO (6-26); CHLORIDE 113 MEQ/L (98-107); CO2 - CARBON DIOXIDE 23 MEQ/L (22-30); CREATININE 1.7 MG/DL (0.8-1.5); GLOMERULAR FILTRATION RATE 38; GLUCOSE 93 MG/DL (75-110); POTASSIUM 4.8 MEQ/L (3.6-5); SODIUM 149 MEQ/L (134-144)
--- NOTE | 2016-06-30 06:30 | NUR ---
SHIFT SUMMARY PT ALERT UNABLE TO ASSESS ORIENTATION DUE TO PT BEING MUTE OR HAVING MINIMAL VERBAL RESPONSES. PT SMILES AND MAKES FACES AT STAFF AND IS PLEASANT AND COOPERATIVE. PT TAKES MEDS CRUSHED. IV SITE IN RIGHT WRIST WITH NS/KCL @ 55ML/HR. NO COMPLICATIONS. THROUGHOUT NIGHT PT OCCASIONALLY WOULD COUGH LOUDLY AND THEN MOAN AND CRY OUT HOWEVER UPON ENTERING ROOM PT NEVER HAD COMPLAINTS OF PAIN OR ANY NEEDS. PT HAS BEEN RESTING SOUNDLY SINCE LAST NOTE. MAHER CATH IN PLACE DRAINING ABER TO ORANGE COLORED URINE.
[2016-06-30] MEDS: OMEPRAZOLE 20 MG CAPSULE PO SCH (06:37)
[2016-06-30] MEDS: CARBIDOPA/LEVODOPA 25 MG/100 MG TABLET PO SCH ×2 (06:37→20:07)
[2016-06-30 08:20] VITALS: BP 130/65; PULSE 65; RESP 16; TEMP 98.2; O2SAT 95
[2016-06-30 08:25] VITALS: PULSE 65; RESP 16
[2016-06-30] MEDS: CALCIUM CARBONATE 750mg Chewable TAB PO SCH ×2 (08:28→21:03)
[2016-06-30] MEDS: ASPIRIN 325 MG TABLET PO SCH (08:28)
[2016-06-30] MEDS: SERTRALINE 50 MG TABLET PO SCH (08:28)
[2016-06-30] MEDS: IRON POLYSACCHARIDES COMPLEX 150 MG CAPSULE PO SCH (08:28)
[2016-06-30] MEDS: DOCUSATE SODIUM 100 MG CAPSULE PO SCH ×2 (08:28→21:03)
[2016-06-30] MEDS: ENOXAPARIN 30 MG/0.3 ML INJECTION SQ SCH (08:29)
[2016-06-30] MEDS: CEFTRIAXONE 1 G in NORMAL SALINE 100 ML IV SCH (12:06)
[2016-06-30] MEDS: D5W 1,000 ML IV SCH (13:16)
--- NOTE | 2016-06-30 14:07 | PNF ---
DATE 06/30/2016 TIME [address] Valdivia. FOLLOWUP Hypernatremia, acute kidney injury. SUBJECTIVE Patient is sitting up in bed looking comfortable this afternoon. Nursing is in assisting him with lunch. They report he took about 50% of breakfast, and it looks like he has gone through about 50% of lunch already. He is nonverbal. Nursing reports he has not been talking or communicating today. Breathing looks comfortable without cough or congestion. Vitals have been stable. He is not complaining of pain. OBJECTIVE VITAL SIGNS: Temperature 98.2. Pulse 65, regular. Respiratory rate 16, unlabored. Blood pressure 130/65, 95% room air saturation. GENERAL: Well-developed, well-nourished elderly gentleman who is awake but nonverbal. HEENT: NC/AT. PERRLA. EOMI. Mucous membranes moist. NECK: Supple midline. No spasm or rigidity. LUNGS: Decreased breath sounds bilaterally with coarse upper airway noises. He is breathing comfortably on room air without distress. CARDIOVASCULAR: Regular rate and rhythm. ABDOMEN: Soft, flat, nontender, nondistended. Bowel sounds are decreased. EXTREMITIES: No clubbing or cyanosis. No lower extremity edema is present. NEUROLOGIC: Cranial nerves appear intact. I am not appreciating focal motor deficits. PSYCHIATRIC: Patient is awake. He will track but is nonverbal. He is not agitated or restless. SKIN: Warm and dry. KIDNEY: Creatinine is 1.7, with GFR 38. Urine output yesterday 1325 mL. LABORATORY White blood count is 6.7, with hemoglobin 11.8, and platelets 126,000. Serum sodium is 149, potassium 4.8, chloride 113, CO2 42, with creatinine 1.3, GFR 38, and blood glucose 92. ASSESSMENT 1. Hypernatremia (present on admission)--continued improvements noted. 2. Acute kidney injury--resolving. Creatinine is nearing baseline. 3. Dehydration--resolving. 4. Urinary tract infection--no organism isolated. 5. Lethargy secondary to hypernatremia-- improving. 6. Parkinson's disease. 7. Hypertension. 8. Thrombocytopenia. 9. Dysphagia. PLAN 1. Continue with D5W but as potassium is trending upwards we will remove potassium from IV fluids. 2. Continue Lovenox 30 mg subcutaneously daily for DVT prophylaxis--started yesterday. 3. I encouraged oral intake of fluids and liquids. 4. Continue current antihypertensives. 5. Recheck CBC in a.m. secondary to hypernatremia and acute kidney injury. We will also check a magnesium and phosphorus secondary to acute kidney injury. 6. Recheck CBC in a.m. in light of thrombocytopenia. 7. Continue with supportive care. 8. Anticipate Dr. Valdivia's return in a.m. 9. Case was discussed with nursing. 10. Time spent with patient care 25 minutes. RUDY
[2016-06-30 16:12] VITALS: BP 144/80; PULSE 66; RESP 18; TEMP 96.8; O2SAT 96
--- NOTE | 2016-06-30 18:16 | NUR ---
SUMMARY PT UNABLE TO CONVERSE VERBALLY THROUGHOUT SHIFT. PT SMILES AND GRINS OCCASIONALLY WHEN APPROACHED AND SPOKEN TO. PT TURNED Q2H IN THE BED WITH ASSIST X2, KEEPING HEELS ELEVATED ON PILLOWS. NO SKIN VARIANCES NOTED. WITH THE MOST RECENT TURN TO THE RIGHT SIDE, PT HAD A SOFT INCONTINENT BM. PT DID NOT APPEAR IN ANY DISTRESS OR PAIN THIS SHIFT WITH TURNS. PT REQUIRED FEEDING AT MEAL TIMES AND ATE 50-75% OF HIS MEALS. ADEQUATE OUTPUT OBTAINED IN MAHER CATHETER THIS SHIFT. NO PRN MEDICATION GIVEN. PT TOOK PILLS CRUSHED IN APPLESAUCE. BED ALARM ON. SIDE RAILS UP X3. HOB ELEVATED SLIGHTLY. WILL CONTINUE TO MONITOR.
[2016-06-30 19:57] VITALS: BP 143/51; PULSE 66; RESP 14; TEMP 96.2; O2SAT 96
[2016-06-30] MEDS: FAMOTIDINE 20 MG TABLET PO SCH (21:03)
--- NOTE | 2016-06-30 22:49 | NUR ---
Chart Check 24 hour chart check completed
[2016-07-01 00:42] VITALS: BP 137/70; PULSE 67; RESP 22; TEMP 98; O2SAT 99
[2016-07-01 05:13] LABS: BASOPHILS % (AUTO) 0.5 % (0-2); EOSINOPHILS # (AUTO) 0.5 T/MM3 (0-0.5); EOSINOPHILS % (AUTO) 7.6 % (0-4); HGB - HEMOGLOBIN 12.2 GM/DL (13.5-17.5); IMMATURE GRANULOCYTE # (AUTO) 0.16 T/MM3 (0.00-0.03); IMMATURE GRANULOCYTE % (AUTO) 2.4 % (0.0-0.5); LYMPHOCYTES # (AUTO) 1.8 T/MM3 (1-4.8); LYMPHOCYTES % (AUTO) 26.4 % (23-45); MEAN CORPUSCULAR HGB 31.1 UUG (26-34); MEAN CORPUSCULAR HGB CONC(MCHC 32.1 GM/DL (31-37); MEAN CORPUSCULAR VOLUME 96.9 UM3 (80-100); MEAN PLATELET VOLUME 11.8 UM3 (9.4-12.4); MONOCYTES # (AUTO) 0.7 T/MM3 (0-0.8); MONOCYTES % (AUTO) 10.6 % (0-9.0); NEUTROPHILS #(AUTO)-ABSOLUTE 3.5 T/MM3 (1.8-7.7); NEUTROPHILS % (AUTO) 52.5 % (33-66); RED BLOOD COUNT 3.92 M/MM3 (4.50-5.90); WBC - WHITE BLOOD COUNT 6.6 T/MM3 (4.5-11.0)
[2016-07-01 05:20] LABS: ALBUMIN 3.1 G/DL (3.5-5.0); ALKALINE PHOSPHATASE 58 U/L (38-126); ALT (SGPT) 19 U/L (21-72); ANION GAP 9 MEQ/L (5-15); AST (SGOT) 29 U/L (17-59); BUN/CREATININE RATIO 21 RATIO (6-26); CHLORIDE 108 MEQ/L (98-107); CO2 - CARBON DIOXIDE 24 MEQ/L (22-30); CREATININE 1.6 MG/DL (0.8-1.5); GLOMERULAR FILTRATION RATE 41; GLUCOSE 90 MG/DL (75-110); MAGNESIUM 2.1 MG/DL (1.6-2.3); PHOSPHORUS 4.5 MG/DL (2.5-4.5); POTASSIUM 4.5 MEQ/L (3.6-5); SODIUM 141 MEQ/L (134-144); TOTAL PROTEIN 6.3 G/DL (6.3-8.2)
--- NOTE | 2016-07-01 05:31 | NUR ---
SHIFT SUMMARY PT ALERT, UNABLE TO ASSESS ORIENTATION DUE TO PT BEING MINIMAL VERBAL RESPONSES. PT DID SAY "HELLO" ONCE DURING THIS SHIFT. PT SMILES OCCASIONALLY. NO GROANING WITH TURNING Q2H. PT PLEASANT AND COOPERATIVE WITH STAFF. TAKES MEDS CRUSHED WITH APPLESAUCE OR THICKENED WATER. IV SITE IN RIGHT WRIST WITH D5W @ 55ML/HR. MAHER CATHETER WITH ADEQUATE OUTPUT OF LIGHT MAYA URINE. PT HAD ONE INCONTINENT BOWEL MOVEMENT LAST NIGHT. BED LOCKED AND LOW, BED ALARM ON. CALL LIGHT WITHIN REACH. WILL CONTINUE TO MONITOR. Addendum: 07/01/16 at 0612 by WILLIAM BHAT RN YELLOW TO LIGHT MAYA IN MAHER CATHETER
[2016-07-01] MEDS: D5W 1,000 ML IV SCH (06:13)
[2016-07-01] MEDS: OMEPRAZOLE 20 MG CAPSULE PO SCH (06:13)
[2016-07-01] MEDS: CARBIDOPA/LEVODOPA 25 MG/100 MG TABLET PO SCH ×2 (06:13→21:11)
[2016-07-01 08:00] VITALS: BP 141/69; PULSE 65; RESP 18; TEMP 96.4; O2SAT 94
[2016-07-01] MEDS: SERTRALINE 50 MG TABLET PO SCH (08:47)
[2016-07-01] MEDS: ASPIRIN 325 MG TABLET PO SCH (08:47)
[2016-07-01] MEDS: CALCIUM CARBONATE 750mg Chewable TAB PO SCH ×2 (08:47→21:11)
[2016-07-01] MEDS: IRON POLYSACCHARIDES COMPLEX 150 MG CAPSULE PO SCH (08:47)
[2016-07-01] MEDS: DOCUSATE SODIUM 100 MG CAPSULE PO SCH ×2 (08:47→21:12)
[2016-07-01] MEDS: ENOXAPARIN 30 MG/0.3 ML INJECTION SQ SCH (08:48)
--- NOTE | 2016-07-01 10:16 | PNF ---
DATE 07/01/2016 SUBJECTIVE The patient is lying in bed. He is awake, alert, but he is not talkative. That's probably his baseline, I'm sure, according to his family members the last time I talked to them a few days ago. PHYSICAL EXAMINATION VITAL SIGNS: Blood pressure 137/70. Pulse 67. Temperature 98.0. Respiratory rate 22. 02 sat 99% on room air. GENERAL: The patient looks comfortable. NECK: Supple. LUNGS: Clear. CARDIOVASCULAR: Regular rate and rhythm. ABDOMEN: Soft. EXTREMITIES: No cyanosis. No clubbing. No edema. LABORATORY Sodium 141. Chloride 108. CO2 24. Creatinine 1.6. BUN 33. Liver function tests were normal. Calculated osmolality is normalized at 278 at this point in time. Hemoglobin is stable at 12.2. ASSESSMENT 1. Moderate to severe hypernatremia, resolved at this point in time with appropriate IV hydration. 2. Acute dehydration has been treated. The patient appears to be well hydrated at this time. 3. Urinary tract infection on outpatient basis, not otherwise specified. No organism isolated. 4. Lethargy, resolved. 5. Anuria, much improved. 6. Acute kidney injury due to acute illness. Creatinine has improved, almost back to baseline. 7. Chronic kidney disease, stage 4-5. PLAN We will see how much intake patient has today. Will try to discontinue his IV fluids today and then follow up with electrolytes in the morning and see how he responds. Anticipate dismissal to [facility] tomorrow if all goes well. [facility]ITAL[facility]
[2016-07-01] MEDS: CEFTRIAXONE 1 G in NORMAL SALINE 100 ML IV SCH (12:15)
[2016-07-01 16:07] VITALS: BP 141/80; PULSE 66; RESP 18; TEMP 96.7; O2SAT 98
--- NOTE | 2016-07-01 18:22 | NUR ---
Nutrition risk for poor PO intake-follow up: Patient's diet upgraded to dysphagia puree with nectar thick liquid. Patient ate 100% at breakfast and lunch today and had selected meals that were complete and appropriate. RD will follow.
--- NOTE | 2016-07-01 19:49 | NUR ---
status Pt A/O x1, mostly non verbal but has been answering more Y/N questions thru day. V/S stable on RA. Pt states and shows no S/S of pain. PO meds crushed and in food, pt tolerating well. Pond to DD with good output for day, inc of stool having dark black/ green R/T iron med. Pt eating well, will eat 75-100% of each meal. Tolerating thickened liquids well, will take everytime offered to him.
[2016-07-01] MEDS: FAMOTIDINE 20 MG TABLET PO SCH (21:11)
[2016-07-02 00:15] VITALS: BP 146/71; PULSE 67; RESP 18; TEMP 98.4; O2SAT 98
[2016-07-02] MEDS: D5W 1,000 ML IV SCH (01:09)
--- NOTE | 2016-07-02 02:22 | NUR ---
SUMMARY PT IS ALERT AND ORIENTED TO SELF. IS ABLE TO ANSWER SIMPLE YES OR NO QUESTIONS ABOUT SELF. MAHER IN PLACE AND DRAINING YELLOW URINE, GOOD AMOUNT. IV IN PLACE IN THE RIGHT WRIST RUNNING D5W AT 55 ML/HR. DENIES PAIN WHEN ASKED. CONTINUES TO RECEIVE THICKENED FLUIDS. COCCYX HAS A PINK TINT TO IT, SO PT REQUIRES TURNING Q2H.
[2016-07-02 05:19] LABS: ANION GAP 12 MEQ/L (5-15); BUN/CREATININE RATIO 19 RATIO (6-26); CALCIUM 9.3 MG/DL (8.4-10.2); CHLORIDE 104 MEQ/L (98-107); CO2 - CARBON DIOXIDE 25 MEQ/L (22-30); CREATININE 1.5 MG/DL (0.8-1.5); GLOMERULAR FILTRATION RATE 44; GLUCOSE 88 MG/DL (75-110); POTASSIUM 4.4 MEQ/L (3.6-5); SODIUM 141 MEQ/L (134-144)
[2016-07-02] MEDS: OMEPRAZOLE 20 MG CAPSULE PO SCH (05:56)
[2016-07-02] MEDS: CARBIDOPA/LEVODOPA 25 MG/100 MG TABLET PO SCH (05:56)
[2016-07-02 07:23] VITALS: BP 146/79; PULSE 68; RESP 18; TEMP 96.5; O2SAT 98
[2016-07-02 08:00] VITALS: PULSE 68; RESP 18
--- NOTE | 2016-07-02 08:53 | PDOCECFAO ---
Admission Orders Admission Orders Allergies: Coded Allergies: No Known Allergies (Unverified , 07/17/14) Admitting Diagnosis Hypernatremia Admitting Physician Michelle Kam MD Code Status Do Not Resuscitate Anticipated LOS: 30 days or less Rehab Potential: Poor Rehab Prognosis: Fair Diet: Blended/Pureed May use Facility Protocol /SO: Yes Evaluations/Treat: As Needed Long Term Certification I certify that SNF services are required to be given on an Inpatient basis because of the patients need for [facility] care on a continuing basis for the condition(s) for which he/she received inpatient hospital services prior to his/her transfer to the SNF. SNF inpatient care is necessary for the following reasons C/P Assessment/Care, Med Admininistration MICHELLE KAM MD Jul 02, 2016 08:53
[2016-07-02] MEDS ORDERED: ENOXAPARIN 40 MG/0.4 ML INJECTION SQ SCH (09:00)
[2016-07-02] MEDS: ASPIRIN 325 MG TABLET PO SCH (09:22)
[2016-07-02] MEDS: SERTRALINE 50 MG TABLET PO SCH (09:23)
[2016-07-02] MEDS: CALCIUM CARBONATE 750mg Chewable TAB PO SCH (09:23)
[2016-07-02] MEDS: IRON POLYSACCHARIDES COMPLEX 150 MG CAPSULE PO SCH (09:24)
[2016-07-02] MEDS: DOCUSATE SODIUM 100 MG CAPSULE PO SCH (09:24)
--- NOTE | 2016-07-02 09:28 | NUR ---
[facility] SPOKE WITH PT NURSE WHO STATES DR KAM IS D/C PT TODAY. [facility]ARK SPOKE WITH RODOLFO FROM [facility] AND THEY WILL TRANSPORT PT AT 1:15PM TODAY. PARK SPOKE WITH PT DAUGHTER RIVKA AND SHE IS AWARE OF D/C PLAN FOR TODAY. RIVKA AWARE TO CONTACT PARK IF NEEDS ARISE.
--- NOTE | 2016-07-02 10:15 | NUR ---
CM D/C TIME OUT IS COMPLETE. ALL ORDERS SENT TO POST ACUTE CARE SETTING. RODOLFO ACHARYA COLLINS AWARE TO CONTACT CM IF NEEDS ARISE.
[2016-07-02] MEDS: CEFTRIAXONE 1 G in NORMAL SALINE 100 ML IV SCH (11:41)
--- NOTE | 2016-07-02 13:47 | NUR ---
Dismissal Patient dismissed at 1310 via wheelchair with [place] bus [facility]. IV lock pulled, patient dressed, belongings packed and report called to receiving nurse. Go home packet given to interstate bus driver.
--- NOTE | 2016-07-03 14:41 | DSF ---
FINAL DIAGNOSES 1. 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 2. Acute dehydration, treated and resolved. 3. Urinary tract infection, not otherwise specified, with no organism isolated. Patient was treated and resolved. 4. Lethargy, resolved with hydration and correction of severe hypernatremia. 5. Anuria, resolved after IV fluid replacement. 6. Acute kidney injury due to acute illness also. Patient went back to his baseline at 1.4 creatinine on the day of dismissal. 7. Chronic kidney disease stage IV-V. OTHER DIAGNOSES INCLUDING CHRONIC DIAGNOSES Parkinson's disease. Hypertension. REASON FOR ADMISSION 89-year-old man presented to the office with chief complaint of drastic changes in his behavior, has become weak, has no appetite, become less responsive to family, and lethargic. Over the last few days, patient has been having some fevers, as high as 100.4. His urinary output has increased. He has also incontinence of urine which is unusual. He was diagnosed with a urinary tract infection the day before admission and sent home on cephalexin and given a dose of Rocephin at the clinic. At that time, sodium was 160 with chloride 116, potassium 4.2. Because of this finding, patient was admitted to [facility] under the care of Dr. Jamshid Valdivia for further evaluation and recommendations. PHYSICAL EXAM VITAL SIGNS: Blood pressure 127/71 with a pulse of 72. GENERAL: The patient looks fairly quiet, he does not even respond to any questioning. He seems to be aware of his environment. HEENT: Lips are dry. Oral mucosa is dry. EXTREMITIES: No edema. SKIN: Dry. LABORATORY CBC unremarkable other than a mild anemia of 13.2. Sodium 164 with a chloride of 126, BUN of 79, creatinine 4.1, CO2 27, magnesium 2.6. Calculated osmolality 339. UA shows 1+ bacteria and 3-5 RBCs, 3-5 WBCs, 2+ blood. HOSPITAL COURSE Patient was admitted to the general medical floor under the care of Dr. Jamshid Valdivia. Patient was made NPO due to the significant lethargy. IV fluids were started. Patient received normal saline for the first three hours or so and then this was changed to D5W with 20 mEq potassium, patient was given 55 mL/hr throughout this hospitalization. Within 48 hours of admission and IVF hydration, patient's awareness improved, he woke up and was able to smile. He continued with gentle IVF hydration throughout this hospitalization. Family at bedside were happy about that progress. He was eating oral food on dysphagia diet without any difficulty. He doesn't talk very much. This is his baseline as I am told. Mr. Esteban is medically stable to be dismissed to [facility] today. DISMISSAL MEDICATION 1. Tylenol 325 mg two tablets p.o. b.i.d. p.r.n. 2. Aspirin 325 mg one tablet daily. 3. Dulcolax suppository p.r.n. constipation. 4. Tums 300 mg one tablet p.o. b.i.d. 5. Sinemet 25/100 mg one tablet b.i.d. 6. Vitamin D3 2000 IU one capsule daily. 7. Docusate sodium 100 mg one tablet p.o. b.i.d. 8. Famotidine 20 mg 1 tablet at bedtime. 9. Fluticasone, sprays in each nostril once a day. 10. Ferrex 150 mg one capsule daily. 11. Magnesium hydroxide p.r.n. constipation. 12. Metoprolol 50 mg tablet p.o. b.i.d. 13. Omeprazole 20 mg tablet daily. 14. Zofran 4 mg one tablet three times a day p.r.n. nausea and vomiting. 15. Sertraline 50 mg tablet daily. 16. Trolamine salicylate 85 gram cream, apply topically t.i.d. p.r.n. FOLLOW UP I will follow patient at [facility] in one week. After that, we will turn patient back to Dr. Holloway, patient's primary care physician. RUDY
== END 2016-07-02 13:54 | DRG 641 ==
LOC: MED 14:19
PROVIDERS: ADMIT Family Medicine; ATTEND Family Medicine
DX: E87.0 Hyperosmolality and hypernatremia (principal); N17.9 Acute kidney failure, unspecified; N18.4 Chronic kidney disease, stage 4 (severe); E86.0 Dehydration; F44.89 Other dissociative and conversion disorders; E87.5 Hyperkalemia; D69.6 Thrombocytopenia, unspecified; R13.10 Dysphagia, unspecified; G20 Parkinson's disease; Z79.82 Long term (current) use of aspirin
CPT/HCPCS: 36415; 80048; 80053; 81001; 82140; 83735; 83935; 84100; 84295; 85007; 85025; 85027

== ENCOUNTER → 2016-07-04 | Outpatient (CLI) | payer MEDICARE, OTHER ==
[~2016-07-04] MED LIST changes: +ASPI325T PO; +IRON150C5 PO; +OMEP20CA10 PO; +P-EP-93 PO
[2016-07-04 06:45] LABS: ANION GAP 12 MEQ/L (5-15); BUN/CREATININE RATIO 18 RATIO (6-26); CHLORIDE 106 MEQ/L (98-107); CO2 - CARBON DIOXIDE 23 MEQ/L (22-30); CREATININE 1.7 MG/DL (0.8-1.5); GLOMERULAR FILTRATION RATE 38; GLUCOSE 85 MG/DL (75-110); MAGNESIUM 2.2 MG/DL (1.6-2.3); POTASSIUM 4.2 MEQ/L (3.6-5); SODIUM 141 MEQ/L (134-144)
== END ==
LOC: LABNH.BH 06:28
PROVIDERS: ATTEND Family Medicine
DX: E87.0 Hyperosmolality and hypernatremia (principal)
CPT/HCPCS: 36415; 80048; 83735; P9604